=== PATIENT | male | born 1990 | race African-American/Black ===

== ENCOUNTER 2018-10-14 13:14 | Emergency (ER) | payer OTHER ==
[~2018-10-14] VITALS: Ht 185.4 cm; Wt 83.9 kg
[2018-10-14 13:17] VITALS: Ht 185.4 cm; Wt 83.9 kg
[2018-10-14 14:17] LABS: BASOPHIL % 0.9 % (0-2); PLATELET COUNT 178 x10^3mcL (130-400)
[2018-10-14 14:24] LABS: CALCIUM 8.8 mg/dL (8.5-10.1); CARBON DIOXIDE 31.1 mmol/L (21-32); CHLORIDE SERUM 102 mmol/L (98-107); GFR1 > 60 mL/min; GLUCOSE SERUM 104 mg/dL (74-106); SODIUM SERUM 140 mmol/L (136-145)
[2018-10-14 14:29] LABS: ALBUMIN 3.8 g/dL (3.4-5.0); ALKALINE PHOSPHATASE 49 U/L (46-116); ALT/SGPT 37 U/L (16-63); AST/SGOT 22 U/L (15-37); BILIRUBIN TOTAL 0.3 mg/dL (0.20-1.00); CHOLESTEROL 177 mg/dL (<200); TOTAL PROTEIN, SERUM 7.6 g/dL (6.4-8.2)
[2018-10-14 14:31] LABS: RED CELL DISTRIBUTION WIDTH 15.9 % (11.5-14.5)
[2018-10-14 15:14] LABS: AMPHETAMINE QUAL UR NONE DETECTED (See below)
[2018-10-14 17:18] VITALS: BP 129/63
== END 2018-10-14 17:18 | disposition home or self-care (01) ==
LOC: ED 13:14
PROVIDERS: Specialist
DX: R42 Dizziness and giddiness (principal); R11.2 Nausea with vomiting, unspecified
CPT/HCPCS: G0480; J2405; J8597; Q0092